=== PATIENT | male | born 1960 | race Caucasian/White ===

== ENCOUNTER 2017-08-28 18:06 | Emergency (ER) | payer OTHER ==
[2017-08-28 18:24] VITALS: TEMP 99.1; BMI 37.3
--- NOTE | 2017-08-28 18:33 | PDOC ---
History of Present Illness <Jayne Bell - Last Filed: 08/28/17 18:44> - General History Source: Patient Exam Limitations: No Limitations - History of Present Illness Initial Comments: 08/28/17 19:01 Patient is a 57 year old male with a significant past medical history of HTN, Stress test who was brought by EMS to the ED for lightheadedness, s/p feint that occured this evening 5:15pm . Patient reports going to the ED this afternoon when he began to experiencing light headedness before fainting. He reports spending 30 minutes of the elliptical, 30 minutes walking on the treadmill as well as 8 minutes on the stationary bike. Patient states he is new to the gym, and states he did not follow up with anesthesiologist/physician before exercising. Denies chest pain, sob. Denies nausea, vomiting. Denies fevers, chills. Denies change in vision, headache. No other symptoms. Allergies: None Social history: Lives with . No smoking. No alcohol. No illicit drugs. Surgical history: None PMD: Dr. Espino. <Tone Jaramillo - Last Filed: 08/28/17 19:03> - General Chief Complaint: Syncope/Near Syncope Stated Complaint: SYNCOPE Time Seen by Provider: 08/28/17 18:33 Past History - Past Medical History COPD: No HTN: Yes Hypercholesterolemia: Yes - Suicide/Smoking/Psychosocial Hx Smoking History: Unknown if ever smoked Have you smoked in the past 12 months: No Information on smoking cessation initiated: No Hx Alcohol Use: No Drug/Substance Use Hx: No Substance Use Type: None <Jayne Bell - Last Filed: 08/28/17 18:44> <Tone Jaramillo - Last Filed: 08/28/17 19:03> - Past Medical History Allergies/Adverse Reactions: Allergies Allergy/AdvReac Type Severity Reaction Status Date / Time No Known Allergies Allergy Verified 08/28/17 18:19 Review of Systems - Review of Systems Able to Perform ROS?: Yes Comments:: 08/28/17 19:03 GENERAL/CONSTITUTIONAL: +Weakness. No fever or chills. HEAD, EYES, EARS, NOSE AND THROAT: No change in vision. No ear pain or discharge. No sore throat. GASTROINTESTINAL: No nausea, vomiting, diarrhea or constipation. GENITOURINARY: No dysuria, frequency, or change in urination. CARDIOVASCULAR: No chest pain. RESPIRATORY: No cough, wheezing, or hemoptysis. MUSCULOSKELETAL: No joint or muscle swelling or pain. No neck or back pain. SKIN: No rash NEUROLOGIC: +loss of consciousness No headache, vertigo, or change in strength/sensation. ENDOCRINE: No increased thirst. No abnormal weight change. HEMATOLOGIC/LYMPHATIC: No anemia, easy bleeding, or history of blood clots. ALLERGIC/IMMUNOLOGIC: No hives or skin allergy. All Other Systems: Reviewed and Negative <Tone Jaramillo - Last Filed: 08/28/17 19:03> *Physical Exam - Vital Signs Last Vital Signs Temp Pulse Resp BP Pulse Ox 99.1 F 92 H 20 96/61 96 08/28/17 18:20 08/28/17 18:20 08/28/17 18:20 08/28/17 18:20 08/28/17 18:20 - Physical Exam Comments: GENERAL: Awake, alert, and fully oriented, in no acute distress HEAD: No signs of trauma EYES: PERRLA, EOMI, sclera anicteric, conjunctiva clear ENT: Auricles normal inspection, hearing grossly normal, nares patent, oropharynx clear without exudates. Moist mucosa NECK: Normal ROM, supple, no lymphadenopathy, JVD, or masses LUNGS: Breath sounds equal, clear to auscultation bilaterally. No wheezes, and no crackles HEART: Regular rate and rhythm, normal S1 and S2, no murmurs, rubs or gallops ABDOMEN: Soft, nontender, normoactive bowel sounds. No guarding, no rebound. No masses EXTREMITIES: Normal range of motion, no edema. No clubbing or cyanosis. No cords, erythema, or tenderness NEUROLOGICAL: Cranial nerves II through XII grossly intact. Normal speech. Motor and sensation intact. Gait not tested due to nature of complaint. SKIN: Warm, Dry, normal turgor, no rashes or lesions noted. <Jayne Bell - Last Filed: 08/28/17 18:44> - Vital Signs Last Vital Signs Temp Pulse Resp BP Pulse Ox 99.1 F 92 H 20 96/61 96 08/28/17 18:20 08/28/17 18:20 08/28/17 18:20 08/28/17 18:20 08/28/17 18:20 <Tone Jaramillo - Last Filed: 08/28/17 19:03> ED Treatment Course - LABORATORY CBC & Chemistry Diagram: 08/28/17 18:42 08/28/17 18:42 <Jayne Bell - Last Filed: 08/28/17 18:44> - LABORATORY CBC & Chemistry Diagram: 08/28/17 18:42 08/28/17 18:42 - ADDITIONAL ORDERS Additional order review: 08/28/17 18:42 RBC 4.83 MCV 94.9 MCHC 34.0 RDW 13.1 MPV 7.9 Neutrophils % 82.6 Lymphocytes % 10.7 Monocytes % 5.1 Eosinophils % 1.0 Basophils % 0.6 <Tone Jaramillo - Last Filed: 08/28/17 19:03> Medical Decision Making - Medical Decision Making 08/28/17 18:45 Pt presents s/p syncopal event at the gym. He states he was doing light exercise on stationary bike for <10 minutes, as well as elliptical and walking on treadmill for about 10 minutes each. He states he did not feel overexerted at the time. He has had vasovagal episodes before, however, also has history of abnormal stress test that was followed by a negative cardiac cath. Will give IV fluids, as this may be simple dehydration and overexertion (he just recently started going to a gym for the first time), will also do serial cardiac enzymes. <Jayne Bell - Last Filed: 08/28/17 18:44> *DC/Admit/Observation/Transfer <Jayne Bell - Last Filed: 08/28/17 18:44> - Attestations Scribe Attestion: 08/28/17 19:03 Documentation prepared by Tone Jaramillo, acting as medical appliance maker for Jayne Bell MD, /DO. <Tone Jaramillo - Last Filed: 08/28/17 19:03> - Referrals Referrals: Hero Espino [Primary Care Provider] - - Patient Instructions - Post Discharge Activity
[2017-08-28] MEDS ORDERED: SODIUM CHLORIDE 1,000 ML IV STA (18:34)
[2017-08-28 18:47] LABS: BASO % 0.6 % (0-2.0); HEMATOCRIT 45.8 % (35.4-49); HEMOGLOBIN 15.6 GM/dL (11.7-16.9); LYMPH % 10.7 % (8-40); MCH 32.3 pg (25.7-33.7); MEAN CELL VOLUME 94.9 fl (80-96); MEAN PLT VOLUME 7.9 fl (7.5-11.1); MONO % 5.1 % (3.8-10.2); NEUT % 82.6 % (42.8-82.8); PLATELET COUNT 245 K/MM3 (134-434); RBC 4.83 M/mm3 (4.00-5.60); RDW 13.1 % (11.9-15.9); WHITE BLOOD COUNT 16.5 K/mm3 (4.0-10.0)
[2017-08-28 21:14] LABS: ALBUMIN 4.4 g/dl (3.4-5.0); ANION GAP 11 (8-16); BILIRUBIN,TOTAL 0.6 mg/dL (0.2-1.0); BLOOD UREA NITROGEN 26 mg/dL (7-18); CHLORIDE 103 mmol/L (98-107); CO2 25 mmol/L (21-32); CREATININE 1.4 mg/dL (0.7-1.3); GLUCOSE,RANDOM 187 mg/dL (74-106); POTASSIUM 4.2 mmol/L (3.5-5.1); SGOT/AST 21 U/L (15-37); SGPT/ALT 46 U/L (12-78); SODIUM 139 mmol/L (136-145); TOT PROT 7.1 g/dl (6.4-8.2)
[2017-08-28 21:15] LABS: ALK PHOS 49 U/L (45-117)
[2017-08-29 00:49] VITALS: BP 115/76; PULSE 89
--- NOTE | 2017-08-29 01:40 | PDOC ---
*Physical Exam - Vital Signs Last Vital Signs Temp Pulse Resp BP Pulse Ox 99.1 F 89 18 115/76 98 08/28/17 18:20 08/29/17 00:48 08/29/17 00:48 08/29/17 00:48 08/29/17 00:48 ED Treatment Course - LABORATORY CBC & Chemistry Diagram: 08/28/17 18:42 08/28/17 19:47 - ADDITIONAL ORDERS Additional order review: Laboratory Results 08/28/17 08/28/17 08/28/17 19:47 19:47 18:42 Sodium 139 Cancelled Potassium 4.2 Cancelled Chloride 103 Cancelled Carbon Dioxide 25 Cancelled Anion Gap 11 Cancelled BUN 26 H Cancelled Creatinine 1.4 H Cancelled Creat Clearance w eGFR 52.42 Cancelled Random Glucose 187 H Cancelled Calcium 9.0 Cancelled Total Bilirubin 0.6 Cancelled AST 21 Cancelled ALT 46 Cancelled Alkaline Phosphatase 49 Cancelled Creatine Kinase 210 Cancelled Creatine Kinase Index 1.4 CK-MB (CK-2) 3.091 Troponin I 0.03 Cancelled Total Protein 7.1 Cancelled Albumin 4.4 Cancelled 08/28/17 18:42 RBC 4.83 MCV 94.9 MCHC 34.0 RDW 13.1 MPV 7.9 Neutrophils % 82.6 Lymphocytes % 10.7 Monocytes % 5.1 Eosinophils % 1.0 Basophils % 0.6 - Medications Given in the ED: ED Medications Discontinued Medications Generic Name Dose Route Start Last Admin Trade Name Freq PRN Reason Stop Dose Admin Sodium Chloride 1,000 mls @ 1,000 mls/hr 08/28/17 18:34 08/28/17 18:42 Normal Saline - IV 08/28/17 19:33 1,000 mls/hr ASDIR STA Administration *DC/Admit/Observation/Transfer Diagnosis at time of Disposition: Fainting Qualifiers: Syncope type: unspecified Qualified Code(s): R55 - Syncope and collapse - Discharge Dispostion Disposition: HOME Condition at time of disposition: Stable Admit: No - Referrals Referrals: Hero Espino [Primary Care Provider] - - Patient Instructions Printed Discharge Instructions: DI for Syncope in Adults (Fainting) Additional Instructions: Please follow up with your primary care today and your physical education professor in two - three days for re-evaluation. - Post Discharge Activity
--- NOTE | 2017-08-29 13:29 | EKG ---
Test Reason : Blood Pressure : / mmHG Vent. Rate : 092 BPM Atrial Rate : 092 BPM P-R Int : 152 ms QRS Dur : 094 ms QT Int : 352 ms P-R-T Axes : 048 -29 012 degrees QTc Int : 435 ms NORMAL SINUS RHYTHM NORMAL ECG NO PREVIOUS ECGS AVAILABLE Confirmed by MD KAYLEN, TOM ([id number]) on 08/29/2017 1:28:49 PM Referred By: Confirmed By:TOM ABDULLAHI MD
== END 2017-08-29 01:58 | disposition home or self-care (01) ==
LOC: JER 18:06
PROC: 3E0337Z Introduction of Electrolytic and Water Balance Substance into Peripheral Vein, Percutaneous Approach (ICD-10-PCS; principal; 2017-08-28)
DX: R55 Syncope and collapse (principal); I10 Essential (primary) hypertension
CPT/HCPCS: 36415; 71045-TC; 80053; 82550; 82553; 84484; 85025; 93005; 93010; 99285-25